=== PATIENT | female | born 1995 | race Caucasian/White ===

== ENCOUNTER 2022-12-17 15:46 | Emergency (ER) | payer OTHER ==
[~2022-12-17] VITALS: Ht 167.6 cm; Wt 89.4 kg
[2022-12-17 15:53] VITALS: BP 114/78; TEMP 98
== END 2022-12-17 17:03 | disposition home or self-care (01) ==
LOC: ED 15:46
DX: M79.674 Pain in right toe(s) (principal); S50.311A Abrasion of right elbow, initial encounter; S90.121A Contusion of right lesser toe(s) without damage to nail, initial encounter; W22.03XA Walked into furniture, initial encounter; Y92.89 Other specified places as the place of occurrence of the external cause
CPT/HCPCS: 99283